=== PATIENT | female | born 1975 | race Caucasian/White ===

== ENCOUNTER 2019-06-29 18:46 | Emergency (ER) | payer SELFPAY ==
--- NOTE | 2019-06-29 18:58 | ED ---
HPI Chest Pain - HPI Summary HPI Summary: Patient complains of bilateral lower chest pain radiating up into neck starting at 2 PM today. Pain described as intermittent, lasting 10-15 minutes at a time , random onset, worst 8/10. No active chest pain at this time. Denies recent chest pain or shortness of breath with exertion. Denies fever, cough, sore throat, SOB, N/V/D, abdominal pain, change in urine, change in BM. Denies estrogen supplements, recent long travel, recent surgery or trauma, history of cancer, history of , hemoptysis, unilateral leg pain, history of blood clots. Medical history is HTN and is noncompliant with medications. Positive family cardiac history, dad had NM at age 60. Positive smoker. Denies recreational drug use. - History of Current Complaint Chief Complaint: EDChestPainROMI Time Seen by Provider: 06/29/19 18:52 Hx Obtained From: Patient Onset/Duration: Started Hours Ago Timing: Intermittent, Lasting Minutes Initial Severity: Moderate Current Severity: None Pain Intensity: 0 Pain Scale Used: 0-10 Numeric Chest Pain Location: Lower Sternal, Left Anterior, Right Anterior Chest Pain Radiates: Yes Chest Pain Radiates To:: Neck Character: Sharp/Stabbing Aggravating Factor(s): Other: Alleviating Factor(s): Spontaneous Resolution Associated Signs and Symptoms: Positive: Chest Pain - Risk Factors Pulmonary Embolism Risk Factors: Smoking - Allergy/Home Medications Allergies/Adverse Reactions: Allergies Allergy/AdvReac Type Severity Reaction Status Date / Time MS Penicillins [PCN] Allergy Hives Verified 06/23/16 08:43 Home Medications: Home Medications NK [No Home Medications Reported] 06/29/19 [History Confirmed 06/29/19] PMH/Surg Hx/FS Hx/Imm Hx Endocrine/Hematology History: Denies: Hx Diabetes Cardiovascular History: Reports: Hx Angina, Hx Hypertension Denies: Hx Pacemaker/ICD History: Reports: Other Problems/Disorders - GALL BLADDER REMOVED 1998 Denies: Hx Renal Disease Sensory History: Reports: Hx Contacts or Glasses - GLASSES Denies: Hx Hearing Aid Opthamlomology History: Reports: Hx Contacts or Glasses - GLASSES EENT History: Denies: Hx Deafness Neurological History: Denies: Hx Dementia Psychiatric History: Denies: Hx Panic Disorder - Surgical History Surgery Procedure, Year, and Place: GALLBLADDER 1998 Hx Anesthesia Reactions: No Infectious Disease History: No Infectious Disease History: Denies: Traveled Outside the [place] in Last 30 Days - Family History Known Family History: Positive: Non-Contributory - Social History Alcohol Use: None Substance Use Type: Reports: None Smoking Status (MU): Light Every Day Tobacco Smoker Review of Systems Constitutional: Negative Eyes: Negative ENT: Negative Positive: Chest Pain Respiratory: Negative Gastrointestinal: Negative Genitourinary: Negative Musculoskeletal: Negative Skin: Negative Neurological: Negative Psychological: Normal All Other Systems Reviewed And Are Negative: Yes Physical Exam - Summary Physical Exam Summary: Chest pain not reproducible. Triage Information Reviewed: Yes Vital Signs On Initial Exam: Initial Vitals Temp Pulse Resp BP Pulse Ox 97.7 F 63 20 174/86 99 06/29/19 18:47 06/29/19 18:47 06/29/19 18:47 06/29/19 18:47 06/29/19 18:47 Vital Signs Reviewed: Yes Appearance: Positive: Well-Appearing Skin: Positive: Warm Head/Face: Positive: Normal Head/Face Inspection Eyes: Positive: Normal ENT: Positive: Normal ENT inspection Neck: Positive: Supple Respiratory/Lung Sounds: Positive: Clear to Auscultation Cardiovascular: Positive: Normal Abdomen Description: Positive: Nontender Musculoskeletal: Positive: Normal Neurological: Positive: Normal Psychiatric: Positive: Normal AVPU Assessment: Alert - [place] Coma Scale Best Eye Response: 4 - Spontaneous Best Motor Response: 6 - Obeys Commands Best Verbal Response: 5 - Oriented Coma Scale Total: 15 Procedures - Sedation Patient Received Moderate/Deep Sedation with Procedure: No Diagnostics - Vital Signs Vital Signs Temp Pulse Resp BP Pulse Ox 06/29/19 18:50 18 06/29/19 18:47 97.7 F 63 20 174/86 99 - Laboratory Result Diagrams: 06/29/19 19:05 06/29/19 19:05 Lab Statement: Any lab studies that have been ordered have been reviewed, and results considered in the medical decision making process. Chest Pain Course/Dx - Course Course Of Treatment: Patient complains of bilateral lower chest pain radiating up into neck starting at 2 PM today. Pain described as intermittent, lasting 10 -15 minutes at a time, random onset, worst 8/10. No active chest pain at this time. Denies recent chest pain or shortness of breath with exertion. Denies fever, cough, sore throat, SOB, N/V/D, abdominal pain, change in urine, change in BM. Denies estrogen supplements, recent long travel, recent surgery or trauma, history of cancer, history of , hemoptysis, unilateral leg pain , history of blood clots. Medical history is HTN and is noncompliant with medications. Positive family cardiac history, dad had NM at age 60. Positive smoker. Denies recreational drug use. Vital signs within normal limits. Labs unremarkable. Serum troponin is negative. EKG sinus rhythm, heart rate 65, normal P axis, no prior EKG on file. Chest x-ray unremarkable. Heartscore 3. No active chest pain during entire stay in the ED. Patient advised to follow- up with her narrow fabric loom fixer for further evaluation. - Diagnoses Provider Diagnoses: Atypical chest pain Discharge ED - Sign-Out/Discharge Documenting (check all that apply): Patient Departure - Discharge Plan Condition: Stable Disposition: HOME Patient Education Materials: Chest Pain (ED) Referrals: Maria Licea MD [Medical Doctor] - Peter Jha TELLER COORDINATOR [Primary Care Provider] - Additional Instructions: Follow-up with your narrow fabric loom fixer or with narrow fabric loom fixer Dr. Licea for further evaluation. Return to the ED for any new or worsening symptoms. - Billing Disposition and Condition Condition: STABLE Disposition: Home
[2019-06-29 19:14] LABS: ABS Eosinophils 0.2 10^3/ul (0-0.6); ABS Lymphocytes 3.1 10^3/ul (1.0-4.8); ABS Monocytes 0.4 10^3/ul (0-0.8); ABS Neutrophils 3.4 10^3/ul (1.5-7.7); Hematocrit 45 % (35-47); Hemoglobin 15.5 g/dL (12.0-16.0); Lymphocyte % 43.9 %; Mean Corpuscular HGB Conc 34 g/dL (31-36); Mean Corpuscular Hemoglobin 33 pg (27-31); Mean Corpuscular Volume 98 fL (80-97); Mean Platelet Volume 9.7 fL (7.4-10.4); Nucleated Red Blood Cells % 0.2; Platelet Count 157 10^3/uL (150-450); Red Blood Count 4.63 10^6 /uL (3.70-4.87); Red Cell Distribution Width 13 % (10-15); White Blood Count 7.1 10^3/uL (3.5-10.8)
[2019-06-29 19:20] LABS: INR 0.93 (0.82-1.09)
[2019-06-29 19:30] LABS: Albumin 4.6 g/dL (3.2-5.2); Albumin/Globulin Ratio 1.6 (1-3); BUN/Creatinine Ratio 10.4 (8-20); Calcium 9.8 mg/dL (8.6-10.3); EGFR African American 98.1 (>60); EGFR Non-African American 81.1 (>60); Globulin 2.9 g/dL (2-4); Potassium 3.9 mmol/L (3.5-5.0); Total Bilirubin 0.4 mg/dL (0.2-1.0); Total Protein 7.5 g/dL (6.4-8.9)
[2019-06-29 22:48] VITALS: BP 120/58
== END 2019-06-29 22:39 | disposition home or self-care (01) ==
LOC: ED 18:46
DX: R07.89 Other chest pain (principal); I10 Essential (primary) hypertension; F17.210 Nicotine dependence, cigarettes, uncomplicated; R94.31 Abnormal electrocardiogram [ECG] [EKG]
CPT/HCPCS: 36415; 71046; 80053; 83690; 84484; 85025; 85610; 93005; 99283